=== PATIENT | male | born 1965 | race Caucasian/White ===

== ENCOUNTER 2017-07-23 16:02 | Emergency (ER) | payer MEDICARE ==
[~2017-07-23] VITALS: Ht 167.6 cm; Wt 128.6 kg
[2017-07-23 16:05] VITALS: BP 164/101
[2017-07-23] MEDS ORDERED: OXYcodone/APAP 5/325MG TABLET ONE (17:15)
[2017-07-23] MEDS ORDERED: OXYcodone/APAP 5/325MG TABLET PO ONE (17:30)
== END 2017-07-23 17:22 | disposition home or self-care (01) ==
LOC: ED 17:17
DX: S22.32XA Fracture of one rib, left side, initial encounter for closed fracture (principal); E11.9 Type 2 diabetes mellitus without complications; W19.XXXA Unspecified fall, initial encounter; Y93.89 Activity, other specified; Y99.9 Unspecified external cause status; Y92.009 Unspecified place in unspecified non-institutional (private) residence as the place of occurrence of the external cause
CPT/HCPCS: 99284